=== PATIENT | female | born 1950 | race Caucasian/White ===

== ENCOUNTER 2024-04-13 19:43 | Emergency (ER) | payer MEDICARE, SELFPAY ==
[2024-04-13 19:44] VITALS: BP 139/63
--- NOTE | 2024-04-13 20:17 | ED.GENMED ---
History of Present Illness
General
Chief Complaint: Head Injury
Source: patient
Time Seen by Provider: 04/13/24 20:04
History of Present Illness
History of Present Illness:
74-year-old female presents with scalp laceration she sustained today. She was leaning over in her cabinet and went to sit up and hit the head on the undersurface of the cabinet. No blood thinners. No loss conscious. She denies headache or neck
pain. No vision change nausea vomiting or dizziness. Last tetanus unknown. No other complaints
Phy Exam
Physical Exam
Physical Exam:
General: Well-appearing female no acute distress
HEENT: Normocephalic 1.5 cm laceration right parietal scalp oriented in the front to back direction. Pupils equal round reactive to light.
Neurologic exam: Alert normal gait conversing appropriately. No deficit musculoskeletal exam: Cervical spine nontender
Course
Orders/Labs/Results
Orders:
Orders
04/13/24 20:17
Tetanus/Diphth/Acelpertussis [Adacel] 0.5 ml IM .ONCE ONE
Vital Signs
Initial and Last Documented VS:
Initial Vital Signs
Temp Pulse Resp BP Pulse Ox
98.7 F 80 18 139/63 96
04/13/24 19:44 04/13/24 19:44 04/13/24 19:44 04/13/24 19:44 04/13/24 19:44
Last Documented Vital Signs
Temp Pulse Resp BP Pulse Ox
98.7 F 80 18 139/63 96
04/13/24 19:44 04/13/24 19:44 04/13/24 19:44 04/13/24 19:44 04/13/24 19:44
MDM/Problems Addressed
Differential Diagnosis Includes:
Laceration to scalp. The wound was cleansed with saline and held in approximation with 2 skin yessi. Patient tolerated this well. Considered CT of head but not indicated at this time. Wound care instructions were given tetanus updated stable
for discharge
*Critical Care Note
Total Time (30-74mins, 75-104mins- exclusive of procedures): Not Applicable
ED Attending Note
-
Portions of this chart may have been created with voice recognition software.� Occasional wrong word or��sound alike� substitutions may have occurred due to the inherent limitations of voice recognition software.
Discharge Plan
Departure
Patient Disposition: Home (Routine Discharge)
Date of Disposition: 04/13/24
Time of Disposition: 20:20
Patient with high blood pressure during this ER visit?: No
Discharge Problem:
Laceration
Instructions: Laceration Repair With Yessi (DC)
Activity Restrictions/Additional Instructions:
Keep clean. You may take a shower just pat dry when you are done. Have yessi removed in 7 to 10 days
Interventions
Interventions:
*Risk Screen - Suicide Last Done: 04/13/24 19:44
*General Assessment Last Done: 04/13/24 19:44
*Neglect/Abuse Screening Last Done: 04/13/24 19:44
ED- Fall Risk Assessment Last Done: 04/13/24 20:16
*ED COVID-19 Vaccine History Last Done: 04/13/24 20:16
ED- Neurological Assessment Last Done: 04/13/24 20:16
ED-Skin Assessment Last Done: 04/13/24 20:16
Discharge Date and Time
Print Language: HEBREW
[2024-04-13] MEDS: ADACEL 0.5 ML IM (20:22)
== END 2024-04-13 20:36 | disposition home or self-care (01) ==
LOC: EMR 19:43
PROVIDERS: EMERGENCY PHYSICIAN Emergency Medicine; FAMILY PHYSICIAN Family Medicine
DX: S01.01XA Laceration without foreign body of scalp, initial encounter (principal); W22.09XA Striking against other stationary object, initial encounter; Z23 Encounter for immunization
CPT/HCPCS: 99282; 12001; 90471; 90715

== ENCOUNTER → 2024-06-07 10:08 | Outpatient (REF) | payer MEDICARE, SELFPAY | LOC: HWRAD 10:08 | PROVIDERS: ATTENDING PHYSICIAN Psychiatry & Neurology Neurology; FAMILY PHYSICIAN Family Medicine | DX: R41.3 Other amnesia (principal) | CPT/HCPCS: 70450 ==